=== PATIENT | female | born 1980 | race Caucasian/White ===

== ENCOUNTER 2017-09-17 15:30 | Emergency (ER) | payer BC ==
[2017-09-17 15:44] VITALS: BP 180/112
--- NOTE | 2017-09-17 16:17 | EDM.PDOC ---
ED HPI GENERAL MEDICAL PROBLEM - General Chief Complaint: General Stated Complaint: SORE THROAT Time Seen by Provider: 09/17/17 16:10 Source of Information: Reports: Patient History Limitations: Reports: No Limitations - History of Present Illness INITIAL COMMENTS - FREE TEXT/NARRATIVE: Patient is a 37-year-old female who presents to the emergency department this afternoon with a complaint of sore throat 1 day. Patient states that symptoms began yesterday and her did have similar symptoms earlier in the week. Patient also states that she can feel lymph nodes in her left side of her neck. Patient denies chest pain, shortness of breath, fever, nausea, vomiting, diarrhea,, stiff neck, or headache. Onset: Gradual Onset Date: 09/16/17 Duration: Day(s): Quality: Reports: Ache, Burning Severity: Mild Improves with: Reports: None Worsens with: Reports: Eating Associated Symptoms: Reports: No Other Symptoms. Denies: Chest Pain, Fever/ Chills, Nausea/Vomiting, Shortness of Breath Throat Pain Score (Numeric/FACES): 8 - Related Data Allergies Allergy/AdvReac Type Severity Reaction Status Date / Time No Known Drug Allergies Allergy Cannot Verified 09/17/17 15:50 Remember Home Meds: Home Meds Escitalopram [Lexapro] 20 mg PO DAILY 01/08/16 [History] Amoxicillin 875 mg PO BID #14 tab 09/17/17 [Rx] Ibuprofen [Advil Liqui-Gels] 800 mg PO ASDIRECTED PRN 09/17/17 [History] Social & Family History - Tobacco Use Smoking Status *Q: Current Every Day Smoker Years of Tobacco use: 20 Packs/Tins Daily: 1 Second Hand Smoke Exposure: No - Caffeine Use Caffeine Use: Reports: Coffee, Soda - Recreational Drug Use Recreational Drug Use: No ED ROS GENERAL - Review of Systems Review Of Systems: ROS reveals no pertinent complaints other than HPI. Constitutional: Reports: No Symptoms HEENT: Reports: Throat Pain Respiratory: Reports: No Symptoms Cardiovascular: Reports: No Symptoms Endocrine: Reports: No Symptoms GI/Abdominal: Reports: No Symptoms : Reports: No Symptoms Musculoskeletal: Reports: No Symptoms Skin: Reports: No Symptoms Neurological: Reports: No Symptoms Psychiatric: Reports: No Symptoms Hematologic/Lymphatic: Reports: No Symptoms Immunologic: Reports: No Symptoms ED EXAM, GENERAL - Physical Exam Exam: See Below Exam Limited By: No Limitations General Appearance: Alert, WD/WN, No Apparent Distress Eye Exam: Bilateral Eye: Normal Inspection Ears: Normal External Exam, Normal Canal, Normal TMs Nose: Normal Inspection, Normal Mucosa, No Blood Throat/Mouth: Inflammation, Other (Pharyngeal erythema without exudates or tonsillar enlargement.) Head: Atraumatic, Normocephalic Neck: Lymphadenopathy (L), Lymphadenopathy (R) Respiratory/Chest: No Respiratory Distress, Lungs Clear, Normal Breath Sounds Cardiovascular: Regular Rate, Rhythm, No Murmur Neurological: Alert, Oriented, Normal Cognition Psychiatric: Normal Affect, Normal Mood Skin Exam: Warm, Dry, Intact, Normal Color, No Rash Lymphatic: Adenopathy (As described above) Course - Vital Signs Last Recorded V/S: Last Vital Signs Temp 97.4 F 09/17/17 15:38 Pulse 83 09/17/17 15:38 Resp 20 09/17/17 15:38 BP 180/112 H 09/17/17 15:38 Pulse Ox 97 09/17/17 15:38 - Orders/Labs/Meds Meds: Medications Discontinued Medications Generic Name Dose Route Start Last Admin Trade Name [place] PRN Reason Stop Dose Admin Amoxicillin 875 mg 09/17/17 16:10 Amoxil PO 09/17/17 16:11 ONETIME ONE - Re-Assessments/Exams Free Text/Narrative Re-Assessment/Exam: 09/17/17 16:17 Patient afebrile, nontoxic appearing, vital signs stable. Patient given 875 mg amoxicillin in ER and a prescription for 7 day twice a day course. Patient will follow-up with PCP in 2-3 days Departure - Departure Time of Disposition: 16:18 Disposition: Home, Self-Care 01 Condition: Good Clinical Impression: Pharyngitis Qualifiers: Pharyngitis/tonsillitis etiology: unspecified etiology Qualified Code(s): J02.9 - Acute pharyngitis, unspecified - Discharge Information Instructions: Pharyngitis, [id number], Sore Throat, [id number] Referrals: Agnes Johns MD [Primary Care Provider] - Additional Instructions: Follow-up at [facility] in 2-3 days. Return to emergency department sooner if symptoms continue or worsen. - Assessment/Plan Assessment:: Pharyngitis Plan: Follow-up with PCP in 2-3 days
[2017-09-17] MEDS: Amoxicillin 875 MG Tab PO ONE (16:20)
[2017-09-17] MEDS: Amoxicillin 500 MG Cap PO ONE (16:23)
[2017-09-17] MEDS: Amoxicillin 250 MG Cap PO ONE (16:23)
== END 2017-09-17 16:25 | disposition home or self-care (01) ==
LOC: KA.ED 15:30
DX: J02.9 Acute pharyngitis, unspecified (principal); F17.210 Nicotine dependence, cigarettes, uncomplicated; Z79.899 Other long term (current) drug therapy
CPT/HCPCS: 99283; A9270-GY

== ENCOUNTER 2020-02-09 00:25 | Emergency (ER) | payer BC ==
[2020-02-09] MEDS ORDERED: Sodium Chloride 0.9% 10 ML Syringe FLUSH PRN (00:38)
--- NOTE | 2020-02-09 00:45 | EDM.PDOC ---
ED HPI GENERAL MEDICAL PROBLEM - General Chief Complaint: General Stated Complaint: RIGHT WRIST DEFORMITY AFTER FALL Time Seen by Provider: 02/09/20 00:30 Source of Information: Reports: Patient History Limitations: Reports: No Limitations - History of Present Illness INITIAL COMMENTS - FREE TEXT/NARRATIVE: 39 YO WF PRESENTS TO ER COMPLAINING OF RIGHT WRIST PAIN AFTER FALLING DOWN THE STAIRS TONIGHT. PT REPORTS SHE SLIPPED AND FELL AND TRIED TO BREAK HER FALL WITH HER RIGHT HAND CAUSING DEFORMITY TO WRIST. PT DENIES HEAD/NECK PAIN. PT DENIES ANY OTHER INJURY. PT ABLE TO MOVE FINGERS BUT REPORTS SIGNIFICANT DISCOMFORT WITH ANY MOVEMENT. Onset: Today Onset Date: 02/09/20 Location: Reports: Upper Extremity, Right Quality: Reports: Ache Severity: Severe Improves with: Reports: Rest Worsens with: Reports: Movement Associated Symptoms: Reports: No Other Symptoms - Related Data Allergies Allergy/AdvReac Type Severity Reaction Status Date / Time No Known Drug Allergies Allergy Cannot Verified 01/12/18 18:43 Remember Home Meds: Home Meds Escitalopram [Lexapro] 20 mg PO DAILY 01/08/16 [History] Ibuprofen [Advil Liqui-Gels] 800 mg PO ASDIRECTED PRN 09/17/17 [History] Past Medical History HEENT History: Reports: None Gastrointestinal History: Reports: GERD 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: Neurological History: Reports: Headaches, Chronic Psychiatric History: Reports: Anxiety, Depression, Panic Attack - Infectious Disease History Infectious Disease History: Reports: Chicken Pox, MRSA - Past Surgical History HEENT Surgical History: Reports: Oral Surgery, Tonsillectomy GI Surgical History: Reports: None Neurological Surgical History: Reports: None Social & Family History - Family History Family Medical History: No Pertinent Family History - Caffeine Use Caffeine Use: Reports: Coffee, Soda ED ROS GENERAL - Review of Systems Review Of Systems: See Below Constitutional: Reports: No Symptoms HEENT: Reports: No Symptoms Respiratory: Reports: No Symptoms Cardiovascular: Reports: No Symptoms Endocrine: Reports: No Symptoms GI/Abdominal: Reports: No Symptoms : Reports: No Symptoms Musculoskeletal: Reports: Arm Pain Skin: Reports: No Symptoms Neurological: Reports: No Symptoms Psychiatric: Reports: No Symptoms Hematologic/Lymphatic: Reports: No Symptoms Immunologic: Reports: No Symptoms ED EXAM, GENERAL - Physical Exam Exam: See Below Exam Limited By: No Limitations General Appearance: Alert, WD/WN, Anxious, Mild Distress Head: Atraumatic, Normocephalic Neck: Normal Inspection, Supple, Non-Tender, Full Range of Motion Respiratory/Chest: No Respiratory Distress, Lungs Clear, Normal Breath Sounds, No Accessory Muscle Use, Chest Non-Tender Cardiovascular: Normal Peripheral Pulses, Regular Rate, Rhythm, No Edema, No Gallop, No JVD, No Murmur, No Rub Back Exam: Normal Inspection, Full Range of Motion, NT Extremities: No Pedal Edema, Normal Capillary Refill, Limited Range of Motion Neurological: Alert, Oriented, CN II-XII Intact, Normal Cognition, Normal Gait Psychiatric: Anxious, Tearful Skin Exam: Warm, Dry, Intact, Normal Color, No Rash Lymphatic: No Adenopathy ED GENERAL MEDICAL PROCEDURES - Joint Reduction Right Wrist Sedation: Conscious Sedation Pre-procedure NV status: Normal Post-procedure NV status: Normal Technique: Traction/Counter Traction Number of Attempts: 1 Post-Reduction Imaging: Completely Reduced Course - Orders/Labs/Meds Orders: Active Orders 24 hr Category Date Time Status Peripheral IV Care [RC] . DIRECTED Care 02/09/20 00:38 Active Hand 2V Rt [CR] Stat Exams 02/09/20 00:38 Ordered Wrist 2V Rt [CR] Stat Exams 02/09/20 00:38 Ordered Sodium Chloride 0.9% [Saline Flush] Med 02/09/20 00:38 Active 10 ml FLUSH Q8HR PRN Peripheral IV Insertion Adult [OM.PC] Routine Oth 02/09/20 00:38 Ordered Medication Orders Sodium Chloride (Saline Flush) 10 ml FLUSH Q8HR PRN PRN Reason: keep vein open Meds: Medications Generic Name Dose Route Start Last Admin Trade Name Freq PRN Reason Stop Dose Admin Sodium Chloride 10 ml 02/09/20 00:38 Saline Flush FLUSH Q8HR PRN keep vein open Discontinued Medications Generic Name Dose Route Start Last Admin Trade Name Freq PRN Reason Stop Dose Admin Hydromorphone HCl 1 mg 02/09/20 00:46 Dilaudid IVPUSH 02/09/20 00:47 ONETIME ONE Ketamine HCl Confirm 02/09/20 01:32 Ketalar Administered 02/09/20 01:33 Dose 200 mg .ROUTE .STK-MED ONE Midazolam HCl Confirm 02/09/20 01:32 Versed 1 Mg/Ml Administered 02/09/20 01:33 Dose 4 mg .ROUTE .STK-MED ONE Ondansetron HCl 4 mg 02/09/20 00:46 Zofran IVPUSH 02/09/20 00:47 ONETIME ONE Departure - Departure Time of Disposition: 01:57 Disposition: Home, Self-Care 01 Condition: Good Clinical Impression: Distal radius fracture, right Qualifiers: Encounter type: initial encounter Fracture type: closed - Discharge Information Instructions: Closed Reduction for Wrist or Forearm Referrals: Sapphire Hooper NP [Primary Care Provider] - Gerry Velasquez MD [Physician] - Forms: ED Department Discharge Additional Instructions: 1. DISCHARGE HOME 2. REST/ICE/ELEVATION/SPLINT 3. MOTRIN 600-800MG EVERY 8 HOURS 4. HYDROCODONE 10/325 #6 1 EVERY 6 HOURS NEEDED FOR PAIN 5. FOLLOW UP WITH DR LIU FOR FURTHER EVALUATION AND TREATMENT 6. RETURN TO ER FOR WORSENING SYMPTOMS - My Orders Last 24 Hours: My Active Orders 02/09/20 00:38 Peripheral IV Care [RC] . DIRECTED Hand 2V Rt [CR] Stat Wrist 2V Rt [CR] Stat Sodium Chloride 0.9% [Saline Flush] 10 ml FLUSH Q8HR PRN Peripheral IV Insertion Adult [OM.PC] Routine - Assessment/Plan Last 24 Hours: My Active Orders 02/09/20 00:38 Peripheral IV Care [RC] . DIRECTED Hand 2V Rt [CR] Stat Wrist 2V Rt [CR] Stat Sodium Chloride 0.9% [Saline Flush] 10 ml FLUSH Q8HR PRN Peripheral IV Insertion Adult [OM.PC] Routine Assessment:: 1. DISTAL RADIAL FRACTURE WITH DISLOCATION- REDUCED Plan: 1. DISCHARGE HOME 2. REST/ICE/ELEVATION/SPLINT 3. MOTRIN 600-800MG EVERY 8 HOURS 4. HYDROCODONE 10/325 #6 1 EVERY 6 HOURS NEEDED FOR PAIN 5. FOLLOW UP WITH DR LIU FOR FURTHER EVALUATION AND TREATMENT 6. RETURN TO ER FOR WORSENING SYMPTOMS
[2020-02-09] MEDS ORDERED: Ondansetron 4 MG/2 ML SDV IVPUSH ONE (00:46)
[2020-02-09] MEDS ORDERED: HYDROmorphone 1 MG/ML Syringe IVPUSH ONE (00:46)
[2020-02-09] MEDS ORDERED: Midazolam 1 MG/ML 2 ML SDV ONE (01:32)
[2020-02-09] MEDS ORDERED: Ketamine 200 MG/20 ML MDV ONE (01:32)
[2020-02-09] MEDS ORDERED: Midazolam 1 MG/ML 2 ML SDV IVPUSH ONE (01:38)
[2020-02-09] MEDS ORDERED: Ketamine 200 MG/20 ML MDV IVPUSH ONE (01:38)
[2020-02-09] MEDS ORDERED: Acetaminophen/HYDROcodone 325-10 MG Tab PO ONE (01:58)
[2020-02-09 04:02] VITALS: BP 121/75; PULSE 117
== END 2020-02-09 02:10 | disposition home or self-care (01) ==
LOC: KA.ED 00:25
DX: S52.501A Unspecified fracture of the lower end of right radius, initial encounter for closed fracture (principal); F41.9 Anxiety disorder, unspecified; F32.9 Major depressive disorder, single episode, unspecified; Z79.899 Other long term (current) drug therapy; W10.9XXA Fall (on) (from) unspecified stairs and steps, initial encounter
CPT/HCPCS: 25605; 73100-RT; 96374; 96375; 99152; 99153; 99283-25; A9270-GY; J1170; J2250; J2405

== ENCOUNTER 2023-06-06 13:02 | Day surgery (SDC) | payer BC ==
[~2023-06-06 13:02] MED LIST: Sodium Chloride 0.9% 10 ML Syringe FLUSH PRN
[2023-06-06] MEDS ORDERED: Propofol 200 MG/20 ML SDV IV ONE (13:03)
[2023-06-06] MEDS: Lactated Ringers 1,000 ML IV SCH (13:46)
[2023-06-06] MEDS ORDERED: Propofol 200 MG/20 ML SDV ONE ×2 (13:48→15:08)
[2023-06-06 17:17] VITALS: BP 130/88; PULSE 74
== END 2023-06-06 17:05 | disposition home or self-care (01) ==
LOC: KA.SDS 13:02
PROVIDERS: ATTEND Family Medicine
DX: Z12.11 Encounter for screening for malignant neoplasm of colon (principal); I10 Essential (primary) hypertension; K21.9 Gastro-esophageal reflux disease without esophagitis; F41.9 Anxiety disorder, unspecified; G47.00 Insomnia, unspecified; Z79.899 Other long term (current) drug therapy; Z87.891 Personal history of nicotine dependence
CPT/HCPCS: 00812; 81025; J2704; J3490; J7120